=== PATIENT | male | born 1970 | race Two or more races ===

== ENCOUNTER 2018-11-15 12:27 | Inpatient (IN) | payer SELFPAY ==
[~2018-11-15] VITALS: Ht 180.3 cm; Wt 91.0 kg
[2018-11-15] VITALS (7 sets, daily range): BP systolic 125–136; BP diastolic 61–85
[2018-11-15] MEDS ORDERED: SODIUM CHLORIDE 0.9% 1,000 ML IV ONE ×3 (12:57→13:29)
[2018-11-15 13:47] LABS: Basophils # (auto) 0 uL; Eosinophils # (auto) 0 uL; White Blood Cell 12.9 10^3/uL (4.4-10.8)
[2018-11-15 13:50] LABS: Basophils % (auto) 0.3 % (0.0-2.0); Hematocrit 14.5 % (41.0-53.0); Lymphocytes # (auto) 1.8 uL; Lymphocytes % (auto) 13.8 % (10.0-50.0); Mean Corpuscular Hemoglobin 27.4 pg (28.0-32.0); Mean Corpuscular Hgb Conc. 31.7 g/dL (32.0-36.0); Mean Corpuscular Volume 86.6 fL (80.0-100.0); Monocytes # (auto) 0.6 uL; Monocytes % (auto) 4.9 % (0.0-12.0); Neutrophils # (auto) 10.5 uL; Nucleated Red Blood Cells % 0.1 %; Red Blood Cells 1.67 10^6/uL (4.5-5.90); Red Cell Distribution Width 15.1 % (11.8-14.3)
[2018-11-15 13:53] LABS: Hemoglobin 4.6 g/dL (13.5-17.5)
[2018-11-15 14:02] LABS: INR 1.06 (0.9-1.15); Partial Thromboplastin Time 22.8 sec (23.64-32.05)
[2018-11-15 14:04] LABS: Albumin 2.5 g/dL (3.4-5.0); Anion Gap 8 (5-15); BUN/Creatinine Ratio 38.2; Blood Urea Nitrogen 29 mg/dL (7-18); Carbon Dioxide 22 mmol/L (21-32); Chloride 114 mmol/L (98-107); GFR African American 141 mL/min; GFR Non-African American 117 mL/min; Glucose 103 mg/dL (74-106); Potassium 3.7 mmol/L (3.5-5.1); Sodium 144 mmol/L (136-145)
[2018-11-15 14:09] LABS: Alanine Aminotransferase 30 U/L (16-61); Alkaline Phosphatase 50 U/L (45-117); Aspartate Aminotransferase 35 U/L (15-37); Bilirubin, Total 0.2 mg/dL (0.2-1.0); Total Protein 5.7 g/dL (6.4-8.2)
[2018-11-15 14:37] LABS: Platelet Count (auto) 729 10^3/uL (140-450)
[2018-11-15] MEDS ORDERED: NITROGLYCERIN 0.4 MG SL TAB SL PRN (15:45)
[2018-11-15] MEDS ORDERED: MORPHINE SULF INJ 2 MG/ML SYRINGE 1ML IV PRN (15:45)
[2018-11-15] MEDS ORDERED: ONDANSETRON HCL 4 MG/2 ML VIAL IV PRN (15:45)
[2018-11-15] MEDS: SODIUM CHLORIDE 0.9% 1,000 ML IV SCH (16:48)
[2018-11-15] MEDS: metroNIDAZOLE 500MG/100ML 100 ML IV SCH (17:16)
[2018-11-15] MEDS: MORPHINE SULF INJ 2 MG/ML SYRINGE 1ML IV PRN (19:31)
[2018-11-15 19:49] LABS: Urine Bacteria NONE SEEN /hpf (None Seen); Urine Blood Negative /uL (Negative); Urine Mucus FEW (None Seen); Urine WBC 1 /hpf (0 - 3)
[2018-11-15] MEDS: PANTOPRAZOLE 40 MG/10 ML VIAL INJ IV SCH (22:00)
[2018-11-15 23:58] LABS: Hematocrit 20.5 % (41.0-53.0)
[2018-11-16] VITALS (11 sets, daily range): BP systolic 124–141; BP diastolic 75–91
[2018-11-16 00:02] LABS: Hemoglobin 6.6 g/dL (13.5-17.5)
[2018-11-16] MEDS: metroNIDAZOLE 500MG/100ML 100 ML IV SCH ×2 (00:18→08:24)
[2018-11-16] MEDS: MORPHINE SULF INJ 2 MG/ML SYRINGE 1ML IV PRN ×3 (00:18→21:51)
[2018-11-16] MEDS: SODIUM CHLORIDE 0.9% 1,000 ML IV SCH ×3 (01:46→15:00)
[2018-11-16 07:18] LABS: Basophils # (auto) 0.1 uL; Basophils % (auto) 0.8 % (0.0-2.0); Eosinophils # (auto) 0.2 uL; Hemoglobin 8.3 g/dL (13.5-17.5); Lymphocytes # (auto) 1.7 uL; Monocytes # (auto) 0.7 uL; Nucleated Red Blood Cells % 0.1 %; White Blood Cell 9.6 10^3/uL (4.4-10.8)
[2018-11-16 07:19] LABS: Hematocrit 25.6 % (41.0-53.0); Mean Corpuscular Hemoglobin 27.6 pg (28.0-32.0); Mean Corpuscular Hgb Conc. 32.6 g/dL (32.0-36.0); Mean Corpuscular Volume 84.7 fL (80.0-100.0); Monocytes % (auto) 6.9 % (0.0-12.0); Neutrophils % (auto) 72.3 % (37.0-80.0); Platelet Count (auto) 573 10^3/uL (140-450); Red Blood Cells 3.02 10^6/uL (4.5-5.90); Red Cell Distribution Width 17.1 % (11.8-14.3)
[2018-11-16 07:37] LABS: Calcium 7.9 mg/dL (8.5-10.1); Potassium 3.9 mmol/L (3.5-5.1)
[2018-11-16] MEDS: PANTOPRAZOLE 40 MG/10 ML VIAL INJ IV SCH (10:00)
[2018-11-16] MEDS ORDERED: GASTROGRAFIN 120 ML SOL ONE (14:34)
[2018-11-16] MEDS: ESOMEPRAZOLE 40 MG/5ml VIAL INJ IV SCH ×2 (15:30→21:51)
--- NOTE | 2018-11-16 19:20 | NUR ---
OPEN SHIFT NOTE PATIENT IS ALERT AND ORIENTED X4, ON ROOM AIR. IV'S INTACT AND PATENT. PATIENT HAS NO SIGNS OR SYMPTOMS OF DISTRESS AT THIS TIME. POC DISCUSSED AND QUESTIONS ANSWERED. BED IS LOCKED IN LOWEST POSITION WITH SIDE RAILS UP X2 FOR SAFETY. CALL LIGHT IS WITHIN REACH AND IS ENCOURAGED TO CALL IF NEEDS ANYTHING. PATIENT VERBALIZED UNDERSTANDING. WILL CONTINUE TO ROUND Q1HR AND PRN.
[2018-11-17 05:51] LABS: Basophils # (auto) 0.1 uL; White Blood Cell 9.8 10^3/uL (4.4-10.8)
[2018-11-17 05:55] VITALS: BP 136/90
[2018-11-17 05:55] LABS: Basophils % (auto) 0.6 % (0.0-2.0); Eosinophils # (auto) 0.2 uL; Eosinophils % (auto) 2.3 % (0.0-7.0); Hematocrit 25.7 % (41.0-53.0); Hemoglobin 8.6 g/dL (13.5-17.5); Lymphocytes # (auto) 1.6 uL; Lymphocytes % (auto) 16.4 % (10.0-50.0); Mean Corpuscular Hemoglobin 28.5 pg (28.0-32.0); Mean Corpuscular Hgb Conc. 33.6 g/dL (32.0-36.0); Monocytes # (auto) 0.6 uL; Monocytes % (auto) 6.6 % (0.0-12.0); Neutrophils # (auto) 7.3 uL; Neutrophils % (auto) 74.1 % (37.0-80.0); Red Blood Cells 3.02 10^6/uL (4.5-5.90); Red Cell Distribution Width 17.4 % (11.8-14.3)
[2018-11-17 06:01] LABS: Potassium 3.7 mmol/L (3.5-5.1)
[2018-11-17 06:05] LABS: BUN/Creatinine Ratio 19.4; Calcium 8.4 mg/dL (8.5-10.1); Magnesium 2.2 mg/dL (1.6-2.6)
[2018-11-17 06:14] LABS: Platelet Count (auto) 590 10^3/uL (140-450)
[2018-11-17] MEDS: SODIUM CHLORIDE 0.9% 1,000 ML IV SCH (07:40)
[2018-11-17 08:06] VITALS: BP 128/77
[2018-11-17] MEDS ORDERED: GASTROGRAFIN 120 ML SOL ONE (08:21)
[2018-11-17] MEDS ORDERED: EZ-GAS II GRANULES (RADIOLOGY USE) PO ONE (08:22)
[2018-11-17 08:53] VITALS: BP 118/78
[2018-11-17] MEDS: ESOMEPRAZOLE 40 MG/5ml VIAL INJ IV SCH ×2 (10:00→22:26)
[2018-11-17 12:14] VITALS: BP 122/81
[2018-11-17] MEDS ORDERED: MORPHINE SULF INJ 2 MG/ML SYRINGE 1ML IV PRN (13:30)
[2018-11-17 16:40] VITALS: BP 118/77
--- NOTE | 2018-11-17 19:10 | NUR ---
OPENING SHIFT NOTE Assumed care from day nurse. Patient is alert and orient x 4. Patient denies any pain. No s/s of distress or sob. Patient instructed on poc and to call for assistance as need. Patient verbalized understanding. Bed is in lowest position with call light in reach.
[2018-11-17 22:00] VITALS: BP 114/76
[2018-11-18 05:19] VITALS: BP 113/72
[2018-11-18 06:20] LABS: Hematocrit 24.9 % (41.0-53.0); Hemoglobin 8.3 g/dL (13.5-17.5)
--- NOTE | 2018-11-18 08:00 | NUR ---
ASSESSMENT NOTE PT IS ALERT ORIENTED X4, RESTING IN BED COMFORTABLY, NO DISTRESS NOTED, AMBULATE NEEDED, PAIN 0/10, NO SIGNS OF BLEEDING NOTED, PAIN 0/10, CALL LIGHT WITHIN REACH.
[2018-11-18 09:00] VITALS: BP 109/76
[2018-11-18] MEDS: ESOMEPRAZOLE 40 MG/5ml VIAL INJ IV SCH (09:03)
[2018-11-18] MEDS ORDERED: PANT40TA2 PO (10:34)
--- NOTE | 2018-11-18 10:40 | NUR ---
DR SANTAMARIA AT BED SIDE WITH DISCHARGE HOME INSTRUCTION
--- NOTE | 2018-11-18 13:00 | NUR ---
Discharge instructions given as ordered. Encourage to follow up with PMD as instructed. All questions and concerns addressed. Patient verbalized understanding. Medication reconciliation form completed and copy given to patient . IV removed with catheter intact, pressure dressing applied, Patient taken to vehicle via wheelchair with all personal belongings, accompanied by staff and family member. No distress noted at time of departure.
--- NOTE | 2018-11-18 17:03 | NUR ---
NEW PRESCRIPTION CALLED RX PROTONIX TO [facility] I CALLED PT AND HE IS AWARE
== END 2018-11-18 13:00 | disposition home or self-care (01) | DRG 378 ==
LOC: EDBD 12:27 → ER 12:39 → TELE 15:45 → TELE-EAST 11-16 14:56
PROVIDERS: ADMIT Nurse Practitioner Acute Care; ATTEND Internal Medicine
PROC: 30233N1 Transfusion of Nonautologous Red Blood Cells into Peripheral Vein, Percutaneous Approach (ICD-10-PCS; principal; 2018-11-15)
DX: K92.1 Melena (principal); E44.0 Moderate protein-calorie malnutrition; Z68.28 Body mass index [BMI] 28.0-28.9, adult; D72.828 Other elevated white blood cell count; K44.9 Diaphragmatic hernia without obstruction or gangrene; K57.30 Diverticulosis of large intestine without perforation or abscess without bleeding; D64.9 Anemia, unspecified
CPT/HCPCS: 36415; 36430; 71045; 74176; 74247; 80048; 80053; 80061; 81001; 83735; 83880; 84484; 85014; 85018; 85025; 85610; 85730; 86850; 86900; 86901; 86920; 94761; 96360; G0378; J2405; J3490

== ENCOUNTER → 2018-12-05 | Outpatient (CLI) | payer SELFPAY ==
[~2018-12-05] MED LIST: PANT40TA2 PO
[2018-12-05 14:07] LABS: Chloride 107 mmol/L (98-107); Potassium 3.7 mmol/L (3.5-5.1); Sodium 141 mmol/L (136-145)
[2018-12-05 14:14] LABS: Alanine Aminotransferase 21 U/L (16-61); Albumin 3.4 g/dL (3.4-5.0); Alkaline Phosphatase 81 U/L (45-117); Anion Gap 7 (5-15); Aspartate Aminotransferase 12 U/L (15-37); BUN/Creatinine Ratio 17.4; Bilirubin, Total < 0.1 mg/dL (0.2-1.0); Blood Urea Nitrogen 16 mg/dL (7-18); Calcium 9.1 mg/dL (8.5-10.1); Carbon Dioxide 27 mmol/L (21-32); GFR African American 113 mL/min; GFR Non-African American 94 mL/min; Glucose 87 mg/dL (74-106); Total Protein 7.3 g/dL (6.4-8.2)
[2018-12-05 16:50] LABS: Basophils # (auto) 0.1 uL; Eosinophils # (auto) 0.4 uL; Mean Corpuscular Hemoglobin 23.6 pg (28.0-32.0)
[2018-12-05 16:52] LABS: Basophils % (auto) 0.8 % (0.0-2.0); Eosinophils % (auto) 3.8 % (0.0-7.0); Hematocrit 27.6 % (41.0-53.0); Hemoglobin 8.3 g/dL (13.5-17.5); Lymphocytes # (auto) 2.1 uL; Lymphocytes % (auto) 18.3 % (10.0-50.0); Mean Corpuscular Hgb Conc. 29.9 g/dL (32.0-36.0); Mean Corpuscular Volume 79.1 fL (80.0-100.0); Monocytes % (auto) 8.3 % (0.0-12.0); Neutrophils % (auto) 68.8 % (37.0-80.0); Nucleated Red Blood Cells % 0.1 %; Red Blood Cells 3.49 10^6/uL (4.5-5.90); Red Cell Distribution Width 19.3 % (11.8-14.3); White Blood Cell 11.6 10^3/uL (4.4-10.8)
[2018-12-06 13:51] LABS: Platelet Count (auto) 905 10^3/uL (140-450)
== END | disposition home or self-care (01) ==
LOC: LAB 13:27
PROVIDERS: ATTEND Nurse Practitioner
DX: D50.0 Iron deficiency anemia secondary to blood loss (chronic) (principal)
CPT/HCPCS: 36415; 80053; 85025

== ENCOUNTER → 2019-01-10 | Outpatient (CLI) | payer SELFPAY ==
[2019-01-10 12:12] LABS: Basophils # (auto) 0.1 uL; Eosinophils # (auto) 0.3 uL; Hemoglobin 12.9 g/dL (13.5-17.5); Lymphocytes # (auto) 1.9 uL; Neutrophils # (auto) 3.9 uL; Nucleated Red Blood Cells % 0.1 %; Red Cell Distribution Width 21.8 % (11.8-14.3); White Blood Cell 6.6 10^3/uL (4.4-10.8)
[2019-01-10 12:16] LABS: Basophils % (auto) 1.2 % (0.0-2.0); Eosinophils % (auto) 4.4 % (0.0-7.0); Hematocrit 39.2 % (41.0-53.0); Lymphocytes % (auto) 28.1 % (10.0-50.0); Mean Corpuscular Hemoglobin 26.7 pg (28.0-32.0); Mean Corpuscular Hgb Conc. 32.8 g/dL (32.0-36.0); Mean Corpuscular Volume 81.3 fL (80.0-100.0); Monocytes # (auto) 0.5 uL; Monocytes % (auto) 6.9 % (0.0-12.0); Neutrophils % (auto) 59.4 % (37.0-80.0); Platelet Count (auto) 414 10^3/uL (140-450); Red Blood Cells 4.83 10^6/uL (4.5-5.90)
[2019-01-10 13:11] LABS: Urine Bacteria NONE SEEN /hpf (None Seen); Urine Blood Negative /uL (Negative); Urine Specific Gravity 1.009 (1.001-1.035); Urine WBC <1 /hpf (0 - 3)
[2019-01-10 13:28] LABS: Potassium 4.1 mmol/L (3.5-5.1)
[2019-01-10 13:49] LABS: Albumin 3.3 g/dL (3.4-5.0); Bilirubin, Total 0.1 mg/dL (0.2-1.0); Calcium 8.9 mg/dL (8.5-10.1); Total Protein 7.7 g/dL (6.4-8.2)
== END | disposition home or self-care (01) ==
LOC: LAB 11:12
PROVIDERS: ATTEND Nurse Practitioner
DX: E78.5 Hyperlipidemia, unspecified (principal)
CPT/HCPCS: 36415; 80053; 80061; 81001; 84443; 85025

== ENCOUNTER → 2019-01-24 | Outpatient (CLI) | payer SELFPAY ==
[2019-01-24 13:39] LABS: Basophils # (auto) 0.1 uL; Hematocrit 41.5 % (41.0-53.0); Hemoglobin 13.3 g/dL (13.5-17.5); Monocytes # (auto) 0.5 uL
[2019-01-24 13:42] LABS: Eosinophils # (auto) 0.3 uL; Eosinophils % (auto) 3.7 % (0.0-7.0); Lymphocytes # (auto) 1.8 uL; Mean Corpuscular Hemoglobin 26.1 pg (28.0-32.0); Mean Corpuscular Volume 81.4 fL (80.0-100.0); Monocytes % (auto) 7.6 % (0.0-12.0); Neutrophils # (auto) 4.4 uL; Neutrophils % (auto) 62.7 % (37.0-80.0); Nucleated Red Blood Cells % 0.1 %; Platelet Count (auto) 365 10^3/uL (140-450)
[2019-01-24 13:50] LABS: Red Cell Distribution Width 20.5 % (11.8-14.3)
== END | disposition home or self-care (01) ==
LOC: LAB 13:04
PROVIDERS: ATTEND Internal Medicine
DX: D50.9 Iron deficiency anemia, unspecified (principal)
CPT/HCPCS: 36415; 85025

== ENCOUNTER → 2019-04-25 | Outpatient (CLI) | payer SELFPAY ==
[2019-04-25 15:27] LABS: Basophils # (auto) 0.1 uL; Basophils % (auto) 0.7 % (0.0-2.0); Eosinophils # (auto) 0.3 uL; Eosinophils % (auto) 3.6 % (0.0-7.0); Hematocrit 44.1 % (41.0-53.0); Hemoglobin 14.8 g/dL (13.5-17.5); Lymphocytes % (auto) 23.4 % (10.0-50.0); Mean Corpuscular Hemoglobin 28.3 pg (28.0-32.0); Mean Corpuscular Hgb Conc. 33.5 g/dL (32.0-36.0); Mean Corpuscular Volume 84.6 fL (80.0-100.0); Monocytes # (auto) 0.6 uL; Monocytes % (auto) 6.6 % (0.0-12.0); Neutrophils # (auto) 5.7 uL; Neutrophils % (auto) 65.7 % (37.0-80.0); Nucleated Red Blood Cells % 0.1 %; Platelet Count (auto) 345 10^3/uL (140-450); Red Blood Cells 5.22 10^6/uL (4.5-5.90); Red Cell Distribution Width 14.4 % (11.8-14.3); White Blood Cell 8.7 10^3/uL (4.4-10.8)
[2019-04-25 15:36] LABS: Albumin 3.8 g/dL (3.4-5.0); Potassium 3.7 mmol/L (3.5-5.1)
[2019-04-25 15:45] LABS: BUN/Creatinine Ratio 12.1; Bilirubin, Total 0.3 mg/dL (0.2-1.0); Calcium 9.1 mg/dL (8.5-10.1); Total Protein 7.4 g/dL (6.4-8.2)
== END | disposition home or self-care (01) ==
LOC: LAB 15:21
PROVIDERS: ATTEND Nurse Practitioner
DX: E78.5 Hyperlipidemia, unspecified (principal); R73.9 Hyperglycemia, unspecified
CPT/HCPCS: 36415; 80053; 80061; 85025

== ENCOUNTER → 2019-05-08 | Outpatient (CLI) | payer SELFPAY ==
[2019-05-08 10:12] LABS: % Iron Saturation 45.7 % (20-55)
[2019-05-08 10:20] LABS: Ferritin 76.9 ng/mL (10-322)
[2019-05-08 10:21] LABS: Folate (Folic Acid) 23.87 ng/mL (5.38-24)
== END | disposition home or self-care (01) ==
LOC: LAB 08:15
PROVIDERS: ATTEND Internal Medicine
DX: D50.9 Iron deficiency anemia, unspecified (principal)
CPT/HCPCS: 82607; 82728; 82746; 83540; 83550

== ENCOUNTER → 2019-08-02 | Outpatient (CLI) | payer SELFPAY ==
[2019-08-02 10:24] LABS: Basophils # (auto) 0.1 uL; Basophils % (auto) 0.9 % (0.0-2.0); Eosinophils # (auto) 0.5 uL; Eosinophils % (auto) 7.7 % (0.0-7.0); Hematocrit 44.8 % (41.0-53.0); Hemoglobin 15.4 g/dL (13.5-17.5); Lymphocytes # (auto) 1.8 uL; Lymphocytes % (auto) 25.5 % (10.0-50.0); Mean Corpuscular Hemoglobin 29.9 pg (28.0-32.0); Mean Corpuscular Hgb Conc. 34.5 g/dL (32.0-36.0); Mean Corpuscular Volume 86.9 fL (80.0-100.0); Monocytes # (auto) 0.5 uL; Monocytes % (auto) 6.7 % (0.0-12.0); Neutrophils # (auto) 4.2 uL; Neutrophils % (auto) 59.2 % (37.0-80.0); Nucleated Red Blood Cells % 0.1 %; Platelet Count (auto) 340 10^3/uL (140-450); Red Blood Cells 5.15 10^6/uL (4.5-5.90); Red Cell Distribution Width 12.9 % (11.8-14.3); White Blood Cell 7.1 10^3/uL (4.4-10.8)
[2019-08-02 11:14] LABS: Potassium 4.1 mmol/L (3.5-5.1)
[2019-08-02 11:23] LABS: Albumin 3.8 g/dL (3.4-5.0); BUN/Creatinine Ratio 17.3; Bilirubin, Total 0.2 mg/dL (0.2-1.0); Calcium 9.3 mg/dL (8.5-10.1); Total Protein 7.9 g/dL (6.4-8.2)
== END | disposition home or self-care (01) ==
LOC: LAB 10:06
PROVIDERS: ATTEND Nurse Practitioner
DX: E78.5 Hyperlipidemia, unspecified (principal)
CPT/HCPCS: 36415; 80053; 80061; 85025

== ENCOUNTER 2021-01-15 04:39 | Emergency (ER) | payer SELFPAY ==
[~2021-01-15] VITALS: Ht 180.3 cm; Wt 93.0 kg
[2021-01-15 04:43] VITALS: BP 152/94
[2021-01-15] MEDS ORDERED: KETOROLAC TROMETH 60MG/2ML VIAL IM ONE (07:15)
== END 2021-01-15 07:48 | disposition home or self-care (01) ==
LOC: ER 04:39
DX: M13.831 Other specified arthritis, right wrist (principal)
CPT/HCPCS: 96372; 99283; J1885

== ENCOUNTER → 2021-01-28 | Outpatient (CLI) | payer SELFPAY ==
[2021-01-28 12:23] LABS: Basophils # (auto) 0.1 10 ^3/uL (0-0.2); Basophils % (auto) 0.6 % (0.0-2.0); Eosinophils # (auto) 0.1 10 ^3/uL (0-0.8); Eosinophils % (auto) 1.2 % (0.0-7.0); Hematocrit 39.9 % (41.0-53.0); Hemoglobin 13.9 g/dL (13.5-17.5); Lymphocytes % (auto) 22.4 % (10.0-50.0); Mean Corpuscular Hemoglobin 29.7 pg (28.0-32.0); Mean Corpuscular Hgb Conc. 34.8 g/dL (32.0-36.0); Mean Corpuscular Volume 85.2 fL (80.0-100.0); Monocytes # (auto) 0.5 10 ^3/uL (0-1.3); Monocytes % (auto) 5.8 % (0.0-12.0); Neutrophils # (auto) 6.2 10 ^3/uL (1.6-8.6); Red Blood Cells 4.69 10^6/uL (4.5-5.90); White Blood Cell 8.9 10^3/uL (4.4-10.8)
[2021-01-28 13:07] LABS: Potassium 3.7 mmol/L (3.5-5.1)
[2021-01-28 13:16] LABS: Albumin 3.6 g/dL (3.4-5.0); BUN/Creatinine Ratio 17.6; Bilirubin, Total 0.3 mg/dL (0.2-1.0); CRP High Sensitivity 0.56 mg/dL (< 0.3); Calcium 9.1 mg/dL (8.5-10.1); Total Protein 7.7 g/dL (6.4-8.2)
== END | disposition home or self-care (01) ==
LOC: LAB 11:05
PROVIDERS: ATTEND Specialist
DX: Z11.1 Encounter for screening for respiratory tuberculosis (principal); E78.5 Hyperlipidemia, unspecified; E78.2 Mixed hyperlipidemia; B18.0 Chronic viral hepatitis B with delta-agent; E55.9 Vitamin D deficiency, unspecified; R53.83 Other fatigue; Z79.899 Other long term (current) drug therapy
CPT/HCPCS: 36415; 80053; 84550; 85025; 85652; 86141; 86200; 86225; 86235

== ENCOUNTER 2021-06-18 12:43 | Emergency (ER) | payer SELFPAY ==
[~2021-06-18] VITALS: Ht 180.3 cm; Wt 90.7 kg
[2021-06-18] MEDS ORDERED: SODIUM CHLORIDE 0.9% 1,000 ML IV ONE (13:30)
[2021-06-18] MEDS ORDERED: SODIUM CHLORIDE 0.9% 500 ML IVB ONE (13:30)
[2021-06-18 14:29] LABS: Basophils # (auto) 0 10 ^3/uL (0-0.2); Basophils % (auto) 0.5 % (0.0-2.0); Eosinophils # (auto) 0.1 10 ^3/uL (0-0.8); Eosinophils % (auto) 1.4 % (0.0-7.0); Hematocrit 33.8 % (41.0-53.0); Hemoglobin 11.5 g/dL (13.5-17.5); Lymphocytes # (auto) 2.4 10 ^3/uL (0.4-5.4); Lymphocytes % (auto) 23.7 % (10.0-50.0); Mean Corpuscular Hemoglobin 28.6 pg (28.0-32.0); Mean Corpuscular Hgb Conc. 33.9 g/dL (32.0-36.0); Mean Corpuscular Volume 84.4 fL (80.0-100.0); Monocytes # (auto) 0.5 10 ^3/uL (0-1.3); Monocytes % (auto) 5.3 % (0.0-12.0); Neutrophils % (auto) 69.1 % (37.0-80.0); Red Blood Cells 4.01 10^6/uL (4.5-5.90); Red Cell Distribution Width 13.6 % (11.8-14.3); White Blood Cell 10.1 10^3/uL (4.4-10.8)
[2021-06-18 14:46] LABS: INR 0.99 (0.9-1.15); Partial Thromboplastin Time 24.8 sec (23.6-33.0)
[2021-06-18 14:51] LABS: Albumin 3.6 g/dL (3.4-5.0); Calcium 8.9 mg/dL (8.5-10.1); Potassium 3.6 mmol/L (3.5-5.1)
[2021-06-18 14:54] LABS: BUN/Creatinine Ratio 27.5; Bilirubin, Total 0.2 mg/dL (0.2-1.0); Total Protein 6.7 g/dL (6.4-8.2)
[2021-06-18 15:28] LABS: Urine Bacteria NONE SEEN /hpf (None Seen); Urine Blood Negative /uL (Negative); Urine Mucus FEW (None Seen); Urine Specific Gravity 1.021 (1.001-1.035); Urine WBC <1 /hpf (0 - 3)
[2021-06-18] MEDS ORDERED: IOHEXOL 300 MG/ML 100ML BOTTLE IJ ONE (15:28)
[2021-06-18 17:23] VITALS: BP 139/84
== END 2021-06-18 17:26 | disposition home or self-care (01) ==
LOC: ER 12:43
DX: K44.9 Diaphragmatic hernia without obstruction or gangrene (principal); K76.0 Fatty (change of) liver, not elsewhere classified; K57.30 Diverticulosis of large intestine without perforation or abscess without bleeding; M10.9 Gout, unspecified
CPT/HCPCS: 36415; 71046; 74177; 80053; 81001; 83690; 83735; 85025; 85610; 85730; 99285; J7030; J7040; Q9967